=== PATIENT | female | born 1985 | race African-American/Black ===

== ENCOUNTER 2017-04-06 09:33 | Emergency (ER) | payer MEDICAID ==
[2017-04-06 09:35] VITALS: BP 137/82; PULSE 100; RESP 20; TEMP 99.1; O2SAT 100
[2017-04-06] MEDS ORDERED: CLIN1CAP5 PO (11:49)
[2017-04-06] MEDS ORDERED: NORC5TAB PO (11:49)
[2017-04-06] MEDS ORDERED: BACT800T5 PO (11:49)
--- NOTE | 2017-04-06 11:50 | PD ---
HPI Chief Complaint: Skin Problem Time Seen by Provider: 11:24 Travel History International Travel<30 days: No Contact w/Intl Traveler<30days: No Traveled to known affect area: No History of Present Illness HPI 31-year-old female complains of buttock pain drainage. Patient states that she started having pain and swelling on left side buttock 4 days ago. Patient started having drainage from that area this morning. Patient status post C- section on March 08 at [facility]. Patient has not had suture removal since then. Patient denies any fever chills. PFSH Past Medical History ?: Not Past Surgical History Section: Yes Social History Alcohol Use: No Tobacco Use: No Substance Use: No Allergies-Medications (Allergen,Severity, Reaction): Coded Allergies: Penicillin (Verified Allergy, Unknown, 04/06/17) Review of Systems General / Constitutional: No: Fever Eyes: No: Visual changes HENT: No: Headaches Cardiovascular: No: Chest Pain or Discomfort Respiratory: No: Shortness of Breath Gastrointestinal: No: Abdominal Pain Genitourinary: No: Dysuria Musculoskeletal: No: Pain Skin: No Rash Neurologic: No: Weakness Psychiatric: No: Depression Endocrine: No: Polydipsia Hematologic/Lymphatic: No: Easy Bruising Physical Exam Narrative GENERAL: Well-nourished, well-developed patient. SKIN: Focused skin assessment warm/dry. HEAD: Normocephalic. EYES: No scleral icterus. No injection or drainage. NECK: Supple, trachea midline. No JVD or lymphadenopathy. CARDIOVASCULAR: Regular rate and rhythm without murmurs, gallops, or rubs. RESPIRATORY: Breath sounds equal bilaterally. No accessory muscle use. GASTROINTESTINAL: Abdomen soft, non-tender, nondistended. incision healing well. No discharge or redness no swelling. Nonabsorbable suture visible from the medial and lateral aspect of the surgical wound. MUSCULOSKELETAL: No cyanosis, or edema. BACK: Nontender without obvious deformity. No CVA tenderness. Patient has an area of redness swelling tenderness left buttock area. Patient has an opening with pussy discharge from the area. Data Data Last Documented VS Vital Signs Date Time Temp Pulse Resp B/P Pulse Ox O2 Delivery O2 Flow Rate FiO2 04/06/17 10:59 109 20 04/06/17 09:35 99.1 137/82 100 Room Air MDM Medical Decision Making Medical Screen Exam Complete: Yes Emergency Medical Condition: Yes Differential Diagnosis Differential diagnosis including draining abscess, suture removal. Narrative Course 31-year-old female with draining abscess left buttock and suture removal. Bactrim DS one tablet by mouth given. Clindamycin 300 mg by mouth given. Procedures Procedure Narrative suture was removed with scissors and forceps. Diagnosis Primary Impression: Left buttock abscess Additional Impression: Visit for suture removal Patient Instructions: General Instructions Additional Instructions: Take medications as directed. Return in 2 days for recheck. Med/Other Pt SpecificInfo: Prescription(s) given Scripts Hydrocodone-Acetaminophen ([place])5-325 mg Tab1 Tab PO Q6H PRN (PAIN) #20 TAB Prov:Kenny Montes MD 04/06/17 Sulfamethoxazole-Trimethoprim (Bactrim DS)800-160 Mg Tab1 Tab PO BID #20 TAB Prov:Kenny Montes MD 04/06/17 Clindamycin 150 Mg Cap2 Tab PO Q6H #80 CAP Prov:Kenny Montes MD 04/06/17 Disposition: 01 DISCHARGE HOME Condition: Stable Kenny Montes MD Apr 06, 2017 11:50
[2017-04-06] MEDS ORDERED: CLINDAMYCIN 150 MG CAP PO ONE (12:00)
[2017-04-06] MEDS ORDERED: SULFAMETHOXAZOLE-TRIMETHOPRIM DS 800-160 MG TAB PO ONE (12:00)
== END 2017-04-06 12:55 | disposition home or self-care (01) ==
LOC: NEPD 09:33
DX: L02.31 Cutaneous abscess of buttock (principal); Z48.02 Encounter for removal of sutures; Z88.0 Allergy status to penicillin
CPT/HCPCS: 99284